=== PATIENT | female | born 1990 | race Two or more races ===

== ENCOUNTER 2018-10-18 17:23 | Emergency (ER) | payer SELFPAY ==
[~2018-10-18] VITALS: Ht 172.7 cm; Wt 103.2 kg
[2018-10-18 17:27] VITALS: BP 121/78
== END 2018-10-18 18:01 | disposition left against medical advice (07) ==
LOC: EMS 17:23
DX: R10.9 Unspecified abdominal pain (principal); Z53.21 Procedure and treatment not carried out due to patient leaving prior to being seen by health care provider